=== PATIENT | female | born 1935 | race Caucasian/White ===

== ENCOUNTER 2018-02-11 18:20 | Emergency (ER) | payer OTHER ==
[~2018-02-11] VITALS: Ht 167.6 cm; Wt 65.8 kg
[2018-02-11] MEDS ORDERED: IV NS 0.9% 1,000 ML BAG IV ONE (18:30)
[2018-02-11] MEDS ORDERED: ONDANSETRON HCL/PF 4 MG/2 ML VIAL IVP ONE (18:30)
[2018-02-11] MEDS ORDERED: ONDANSETRON HCL/PF 4 MG/2 ML VIAL ONE (18:32)
[2018-02-11 18:41] LABS: BASOPHILS % (AUTO) 0.2 % (0.0-2.0); EOSINOPHILS % (AUTO) 0.7 % (0.0-6.0); HEMATOCRIT 27 % (33-45); HEMOGLOBIN 8.7 g/dL (11.5-14.8); LYMPHOCYTES # (AUTO) 0.3 /CMM (0.8-4.8); LYMPHOCYTES % (AUTO) 16.9 % (20.0-44.0); MEAN CORPUSCULAR HEMOGLOBIN 27 PG (26.0-33.0); MEAN CORPUSCULAR HGB CONC 33 g/dl (31.0-36.0); MEAN CORPUSCULAR VOLUME 82 fL (82-100); MONOCYTES # (AUTO) 0.1 /CMM (0.1-1.30); MONOCYTES % (AUTO) 7.1 % (2.0-12.0); NEUTROPHILS # (AUTO) 1.4 /CMM (1.8-8.9); NEUTROPHILS % (AUTO) 75.1 % (43.0-81.0); PLATELET COUNT (AUTO) 220 /CMM (150-450); RDW COEFFICIENT OF VARIATION 23.5 (11.5-15.0); RED BLOOD CELL COUNT(AUTO) 3.26 MIL/uL (4.0-5.2)
--- NOTE | 2018-02-11 18:42 | NUR ---
PT PRESENTED TO THE ER WITH A C/O WEAKNESS, NAUSEA AND VOMITTING X 3 DAYS. PT TOOK [employer] AND VOMITTED. PT HAS HX OF BREAST CA. LEFT SIDED MASTECTOMY. PT IS ON THE MONITOR AND CONTINUOUS PULSE OX. VSS.
[2018-02-11 18:49] LABS: WHITE BLOOD COUNT (AUTO) 1.8 K/uL (4.3-11.0)
[2018-02-11 18:55] LABS: CARBON DIOXIDE 30 mmol/L (21-32); CHLORIDE 100 mmol/L (98-107); CREATININE 0.5 mg/dL (0.6-1.3); GLUCOSE 127 mg/dL (74-106); POTASSIUM 3.9 mmol/L (3.5-5.1); SODIUM SERUM 133 mmol/L (136-145); UREA NITROGEN, BLOOD 16 mg/dL (7-18)
[2018-02-11 19:00] LABS: ALANINE AMINOTRANSFERASE 16 U/L (12-78); ALBUMIN 3.1 g/dL (3.4-5.0); ALKALINE PHOSPHATASE 293 U/L (46-116); ASPARTATE AMINOTRANSFERASE 101 U/L (15-37); BILIRUBIN,DIRECT 0.1 mg/dL (0.0-0.2); BILIRUBIN,TOTAL 0.3 mg/dL (0.2-1.0); TOTAL PROTEIN, SERUM 7.3 g/dL (6.4-8.2)
--- NOTE | 2018-02-11 19:42 | NUR ---
CALLED [facility] SPOKE TO CHAR, EXPECTING A CALL BACK FROM [facility]
--- NOTE | 2018-02-11 19:47 | NUR ---
PT WAS MOVED TO ER 5 TO REVERSE ISOLATION.
--- NOTE | 2018-02-11 19:53 | NUR ---
DR. GOFF SPOKE TO [place].
[2018-02-11] MEDS ORDERED: IV NS 0.9% 1,000 ML IV ONE (20:00)
--- NOTE | 2018-02-11 20:42 | NUR ---
TRANSFER INFO RECEIVED FROM [facility]. PT WILL BE GOING O [facility], PHONE NUMBER FOR REPORT , [facility] [phone] ETA. ACCEPTING ER MD MORGAN.
--- NOTE | 2018-02-11 21:17 | NUR ---
PT APPEARS TO BE RESTING COMFORTABLY. PT'S DAUGHTER IS AT THE BEDSIDE.
[2018-02-11 21:20] VITALS: BP 119/58
[2018-02-11 21:20] LABS: BAND % (MANUAL) 4 % (0.0-5.0); LYMPHOCYTES % (MANUAL) 24 % (16-48); MONOCYTES % (MANUAL) 2 % (0-11.0); NEUTROPHILS % (MANUAL) 70 (42-76)
--- NOTE | 2018-02-11 21:20 | NUR ---
CALLING REPORT TO [facility].
--- NOTE | 2018-02-11 21:31 | NUR ---
REPORT TO JE MARQUEZ AT [facility].
--- NOTE | 2018-02-11 21:58 | NUR ---
REPORT GIVEN TO [facility] EMT. PT TO BE TRANSFERRED OUT. VSS. NAD NOTED.
== END 2018-02-11 21:58 ==
LOC: ER 18:22
DX: R11.2 Nausea with vomiting, unspecified (principal); R42 Dizziness and giddiness; Z85.3 Personal history of malignant neoplasm of breast; I10 Essential (primary) hypertension
CPT/HCPCS: 36415; 80048; 80076; 85025; 96361; 96374; 99285; A4606; J2405; J7030 ×2; Z7610

== ENCOUNTER 2018-02-18 18:16 | Emergency (ER) | payer OTHER ==
[~2018-02-18] VITALS: Ht 157.5 cm; Wt 49.9 kg
--- NOTE | 2018-02-18 18:37 | NUR ---
[facility] TO ER; C/O NAUSEA & VOMTING X 2 HOURS; HX OF BREAST CA WITH MET. PATIENT IS AWAKE AND ALERT, NOT IN DISTRESS. SKIN IS WARM TO TOUCH AND NON DIAPHORETIC,. PATIENT IS AFEBRILE. VSS
[2018-02-18] MEDS ORDERED: ONDANSETRON HCL/PF 4 MG/2 ML VIAL ONE (18:39)
[2018-02-18] MEDS ORDERED: MECLIZINE HCL 25 MG TABLET ONE (18:39)
[2018-02-18 18:51] LABS: BASOPHILS # (AUTO) 0.1 /CMM (0.0-0.2); EOSINOPHILS % (AUTO) 0.1 % (0.0-6.0); HEMATOCRIT 32 % (33-45); HEMOGLOBIN 10.5 g/dL (11.5-14.8); LYMPHOCYTES # (AUTO) 0.5 /CMM (0.8-4.8); LYMPHOCYTES % (AUTO) 7.7 % (20.0-44.0); MEAN CORPUSCULAR HEMOGLOBIN 28 PG (26.0-33.0); MEAN CORPUSCULAR HGB CONC 33 g/dl (31.0-36.0); MEAN CORPUSCULAR VOLUME 83 fL (82-100); MONOCYTES # (AUTO) 0.4 /CMM (0.1-1.30); MONOCYTES % (AUTO) 6.5 % (2.0-12.0); NEUTROPHILS # (AUTO) 5.7 /CMM (1.8-8.9); NEUTROPHILS % (AUTO) 84.7 % (43.0-81.0); PLATELET COUNT (AUTO) 276 /CMM (150-450); RDW COEFFICIENT OF VARIATION 25.2 (11.5-15.0); RED BLOOD CELL COUNT(AUTO) 3.83 MIL/uL (4.0-5.2); WHITE BLOOD COUNT (AUTO) 6.7 K/uL (4.3-11.0)
--- NOTE | 2018-02-18 18:58 | NUR ---
CALLED [facility], PRESENTED PT, AWAITING CALL BACK FROM [facility]
[2018-02-18] MEDS ORDERED: MECLIZINE HCL 12.5 MG TABLET PO ONE (19:00)
[2018-02-18] MEDS ORDERED: ONDANSETRON HCL/PF 4 MG/2 ML VIAL IVP ONE (19:00)
[2018-02-18] MEDS ORDERED: IV NS 0.9% 500 ML BAG IV ONE (19:00)
[2018-02-18 19:04] LABS: TROPONIN I < 0.017 ng/mL (0.00-0.056)
--- NOTE | 2018-02-18 19:10 | NUR ---
REPORT RECEIVED FROM JE L[facility] FOR [facility].
--- NOTE | 2018-02-18 19:13 | NUR ---
REPORT GIVEN TO JE PASCUAL
[2018-02-18 19:19] LABS: CALCIUM, SERUM 9.5 mg/dL (8.5-10.1); CARBON DIOXIDE 28 mmol/L (21-32); CHLORIDE 102 mmol/L (98-107); GLUCOSE 114 mg/dL (74-106); POTASSIUM 4.5 mmol/L (3.5-5.1); SODIUM SERUM 137 mmol/L (136-145)
[2018-02-18 19:20] LABS: CREATININE 0.7 mg/dL (0.6-1.3); UREA NITROGEN, BLOOD 29 mg/dL (7-18)
[2018-02-18 19:48] VITALS: BP 109/61
--- NOTE | 2018-02-18 20:15 | NUR ---
RECEIVED CALL FROM [facility], PT ACCEPTED TO [facility] ER BY , NUMBER TO GIVE REPORT IS [phone], [facility] ETA IS [phone].
--- NOTE | 2018-02-18 20:31 | NUR ---
REPORT GIVEN TO [facility] NURSE, JE FINK AT [facility].
--- NOTE | 2018-02-18 20:40 | NUR ---
REPORT GIVEN TO GRACE WITH [facility] FOR TRANSFER TO [facility]. VSS.
== END 2018-02-18 20:42 | disposition short-term general hospital (02) ==
LOC: ER 18:17
DX: R53.1 Weakness (principal); I10 Essential (primary) hypertension; Z85.3 Personal history of malignant neoplasm of breast; Z85.118 Personal history of other malignant neoplasm of bronchus and lung; Z85.841 Personal history of malignant neoplasm of brain
CPT/HCPCS: 36415; 80048-TC; 84484-TC; 85025-TC; A4606; J2405; J7030; J7040; J8597; Z7610